=== PATIENT | male | born 1955 | race Two or more races ===

== ENCOUNTER 2020-10-19 15:46 | Outpatient (REF) | payer MEDICAID, SELFPAY | END 2020-10-19 15:47 | disposition home or self-care (01) | LOC: HO.SCI 15:46 | PROVIDERS: Visit Provider Family Medicine | DX: Z13.89 Encounter for screening for other disorder (principal) ==

== ENCOUNTER 2020-10-28 10:56 | Outpatient (REF) | payer MEDICAID, SELFPAY ==
--- NOTE | ~2020-10-28 | XR_ITS ---
EXAMINATION: XR ELBOW, LEFT CLINICAL INFORMATION: Pain COMPARISON: None TECHNIQUE: AP, lateral, and oblique views of the left elbow. FINDINGS: Bone alignment is normal. No fracture or dislocation is seen. The joint spaces are normal. There is a small osteophyte projecting off the lateral humeral epicondyle suggestive of old epicondylitis and olecranon at the triceps tendon insertion. There is no joint effusion. XR/XR elbow LT min 3V IMPRESSION: Osteophyte projecting off the lateral humeral epicondyle suggestive of old epicondylitis and triceps tendon insertion to the olecranon otherwise unremarkable exam.
== END 2020-10-28 10:57 | disposition home or self-care (01) ==
LOC: HO.XRAY 10:56
PROVIDERS: Visit Provider Family Medicine
DX: M25.522 Pain in left elbow (principal)
CPT/HCPCS: 73080